=== PATIENT | female | born 1995 | race Caucasian/White ===

== ENCOUNTER 2018-08-05 09:49 | Emergency (ER) | payer BC ==
[2018-08-05 09:55] VITALS: RESP 18
--- NOTE | 2018-08-05 10:08 | ED ---
General Adult HPI - General Chief complaint: ENT Stated complaint: Sore throat Time Seen by Provider: 08/05/18 09:53 Source: patient, RN notes reviewed Mode of arrival: ambulatory Limitations: no limitations - History of Present Illness Initial comments: 23-year-old female without any past medical problems presents to the emergency department for a chief complaint of congestion 6 days. Patient states she feels pressure in her face. Patient admits to bilateral ear pain as well. She denies fevers or chills. She states she has a very sore throat. She denies any difficulty swallowing solids or liquids. Patient also states she has mild nausea from postnasal drip. She denies any abdominal pain or chance of . Patient denies cough. Patient has no other complaints at this time including shortness of breath, chest pain, abdominal pain, nausea or vomiting, headache, or visual changes. - Related Data Home Medications Medication Instructions Recorded Confirmed Escitalopram [Lexapro] 20 mg PO HS 08/05/18 08/05/18 Norethindrone-E.estradiol-Iron 1 tab PO DAILY 08/05/18 08/05/18 [Junel Fe 1 mg-20 Mcg Tablet] Previous Rx's Medication Instructions Recorded Amoxicillin/Potassium Clav 1 tab PO BID 7 Days tab 08/05/18 [Augmentin 875-125 Tablet] Allergies Allergy/AdvReac Type Severity Reaction Status Date / Time No Known Allergies Allergy Verified 08/05/18 10:17 Review of Systems ROS Statement: Those systems with pertinent positive or pertinent negative responses have been documented in the HPI. ROS Other: All systems not noted in ROS Statement are negative. Past Medical History Past Medical History: No Reported History History of Any Multi-Drug Resistant Organisms: None Reported Past Surgical History: Orthopedic Surgery, Tonsillectomy Past Psychological History: Anxiety, Depression Smoking Status: Never smoker Past Alcohol Use History: Occasional Past Drug Use History: None Reported General Exam Limitations: no limitations General appearance: alert, in no apparent distress Head exam: Present: atraumatic, normocephalic, normal inspection Eye exam: Present: normal appearance, PERRL, EOMI. Absent: scleral icterus, conjunctival injection, periorbital swelling ENT exam: Present: normal exam, normal oropharynx (Uvula midline, no tonsillar exudates), mucous membranes moist, TM's normal bilaterally (No evidence of otitis media or externa, no erythema or opacification or bulging of tympanic membranes.), normal external ear exam, other (tenderness to maxillary sinuses) Neck exam: Present: normal inspection. Absent: tenderness, meningismus, lymphadenopathy Respiratory exam: Present: normal lung sounds bilaterally. Absent: respiratory distress, wheezes, rales, rhonchi, stridor Cardiovascular Exam: Present: regular rate, normal rhythm, normal heart sounds. Absent: systolic murmur, diastolic murmur, rubs, gallop, clicks GI/Abdominal exam: Present: soft, normal bowel sounds. Absent: distended, tenderness, guarding, rebound, rigid Neurological exam: Present: alert, oriented X3, CN II-XII intact Psychiatric exam: Present: normal affect, normal mood Course Vital Signs 08/05/18 08/05/18 09:53 11:15 Temperature 98 F 97.9 F Pulse Rate 97 84 Respiratory 18 18 Rate Blood Pressure 122/85 118/78 O2 Sat by Pulse 99 99 Oximetry Medical Decision Making - Medical Decision Making 23-year-old female presents to the emergency department for congestion 6 days. She states she has pressure in her face as well as admits to ear pain. She admits to a sore throat denies difficulty swallowing solids or liquids. Mild nausea from postnasal drip without abdominal pain or tenderness. Vitals are stable, patient is afebrile. Exam is generally benign. Some minor maxillary tenderness on palpation, no erythema. Oropharynx nonerythematous, uvula midline , tympanic membranes within normal limits bilaterally. Strep was negative. Patient requests antibiotics stating she has to work buttock Thursday. I did discuss with patient that this is likely viral and antibiotics will likely not help her. However patient states she would like to try them. Patient was given a starter pack of Augmentin as well as a prescription. She will follow up with primary care - Lab Data Lab Results 08/05/18 Range/Units 10:02 Group A Strep Rapid Negative (Negative) Disposition Clinical Impression: Sinusitis Disposition: HOME SELF-CARE Condition: Good Instructions: Sinusitis (ED) Additional Instructions: Please take antibiotic as directed. Please follow-up with primary care in 1-2 days. Return if you have any worsening symptoms. Prescriptions: Amoxicillin/Potassium Clav [Augmentin 875-125 Tablet] 1 tab PO BID 7 Days tab Is patient prescribed a controlled substance at d/c from ED?: No Referrals: Cora Mack MD [STAFF PHYSICIAN] - 1-2 days Time of Disposition: 11:00
[2018-08-05] MEDS ORDERED: AMOXIC-POT CLAV 875MG STARTER 2 EACH TABLET PO STA (11:01)
[2018-08-05 11:18] VITALS: BP 118/78; PULSE 84; TEMP 97.9
== END 2018-08-05 11:18 | disposition home or self-care (01) ==
LOC: EC 09:49
DX: J32.9 Chronic sinusitis, unspecified (principal); R11.0 Nausea; F32.9 Major depressive disorder, single episode, unspecified; F41.9 Anxiety disorder, unspecified; Z79.3 Long term (current) use of hormonal contraceptives; Z79.899 Other long term (current) drug therapy
CPT/HCPCS: 87081; 87430; 99283